=== PATIENT | male | born 1980 | race Caucasian/White ===

== ENCOUNTER 2016-06-26 17:59 | Emergency (ER) | payer BC ==
[~2016-06-26] VITALS: Ht 185.4 cm; Wt 82.4 kg
[2016-06-26 18:00] VITALS: Ht 185.4 cm; Wt 82.4 kg
[2016-06-26] MEDS ORDERED: LIDOCAINE 1% (MDV) 20 ML INJ SC ONE (19:30)
[2016-06-26] MEDS ORDERED: IBUPROFEN 600 MG TAB PO ONE (19:30)
[2016-06-26] MEDS ORDERED: DIPHTH/TET/ACEL PERTUSS (ADULT) 0.5 ML VIAL IM* ONE (19:30)
--- NOTE | 2016-06-26 19:59 | RADRPT ---
PROCEDURE: XR Hand. CLINICAL INDICATION: Laceration. Suspected retained glass foreign body TECHNIQUE: PA, oblique and lateral views of the right hand were obtained. COMPARISON: None available. FINDINGS: Mineralization is within normal limits. No fracture or osseous lesion is identified. Joint spaces are preserved. Soft tissues are unremarkable. No radiopaque foreign body is present. RPTAT:HJJR IMPRESSION: Unremarkable right hand without evidence of retained radiopaque foreign body. Physician Sekou Date Time Electronically viewed and signed by Physician Sekou on 06/26/2016 19:59 JR/
[2016-06-26] MEDS ORDERED: CEPH-443 PO (20:09)
[2016-06-26 20:22] VITALS: BP 127/68; PULSE 58; RESP 20; TEMP 98.2
--- NOTE | 2016-06-28 05:23 | ERD ---
ER Documentation Chief Complaint Date/Time DATE: 06/28/16 TIME: 05:22 Chief Complaint right hand lac HPI This patient is a 36-year-old male with no significant medical history presenting to the emergency department for laceration to his right hand of the palmar surface which occurred just prior to arrival. Patient is right-hand dominant. The patient states he was walking with a glass brock when he tripped and fell causing a jar to break and large glass in his hand. He was able to remove the glass. Patient's tetanus is not up-to-date. Patient reports mild pain associated with the cut. He does not believe there is a foreign body present. He denies all other injuries or symptoms at this time. ROS All systems reviewed and are negative except as per history of present illness. Medications Home Meds Active Scripts Cephalexin* (Keflex*) 500 Mg Capsule, 500 MG PO BID for 7 Days, #14 CAP Prov:MORA LENNON PA-C 06/26/16 PMhx/Soc Medical and Surgical Hx: pt denies Medical Hx, pt denies Surgical Hx Hx Alcohol Use: No Hx Substance Use: No Hx Tobacco Use: No Smoking Status: Never smoker FmHx Noncontributory for chief complaint Physical Exam Vitals Vital Signs Date Time Temp Pulse Resp B/P Pulse Ox O2 Delivery O2 Flow Rate FiO2 06/26/16 20:22 98.2 58 20 127/68 99 Room Air 06/26/16 18:00 98.2 71 20 117/71 99 Physical Exam Const: The patient is resting comfortably in no acute distress. Head: Atraumatic Eyes: Normal Conjunctiva ENT: Normal External Ears, Nose and Mouth. Neck: Full range of motion..~ No meningismus. Resp: Clear to auscultation bilaterally Cardio: Regular rate and rhythm, no murmurs Abd: Soft, non tender, non distended. Normal bowel sounds Skin: There is a 0.5 cm laceration to the palmar surface of the right hand with mild active bleeding there appears to be no foreign bodies present. Back: No midline or flank tenderness Ext: No cyanosis, or edema Neur: Awake and alert Psych: Normal Mood and Affect Results 24 hrs Current Medications Medications (Trade) Dose Ordered Sig/Rolando Route PRN Reason Start Time Stop Time Status Last Admin Dose Admin Diphtheria/ Tetanus/Acell Pertussis (Adacel) 0.5 ml ONCE ONCE IM* 06/26/16 19:30 06/26/16 19:31 DC 06/26/16 19:18 Lidocaine (Xylocaine 1% (Mdv) 20 ml) 20 ml ONCE ONCE SC 06/26/16 19:30 06/26/16 19:31 DC Ibuprofen (Motrin) 600 mg ONCE ONCE PO 06/26/16 19:30 06/26/16 19:31 DC 06/26/16 19:19 Procedures/MDM Laceration Repair by me: Anesthesia: 1% lidocaine locally Location: Palmar surface of right hand Tendon/Joint/Nerves: No injury Foreign body: None detected after copious irrigation and exploration Technique: Simple Interrupted Sutures Complexity: No subcutaneous sutures/mucosal repair/ edge excision Post Closure Length: 0.5 cm Patient's bleeding was easily controlled in the department and there is no indication of anemia. No evidence of compartment syndrome, neurologic injury, vascular injury, open joint, tendon laceration, or foreign body. Patient is appropriate for outpatient follow up. 48 hour wound check. Scar minimization instructions given. Departure Diagnosis: Primary Impression: Laceration Condition: Fair Patient Instructions: Laceration, Hand Referrals: COMMUNITY CLINICS YOU HAVE RECEIVED A MEDICAL SCREENING EXAM AND THE RESULTS INDICATE THAT YOU DO NOT HAVE A CONDITION THAT REQUIRES URGENT TREATMENT IN THE EMERGENCY DEPARTMENT. FURTHER EVALUATION AND TREATMENT OF YOUR CONDITION CAN WAIT UNTIL YOU ARE SEEN IN YOUR DOCTORS OFFICE WITHIN THE NEXT 1-2 DAYS. IT IS YOUR RESPONSIBILITY TO MAKE AN APPOINTMENT FOR FOLOW-UP CARE. IF YOU HAVE A PRIMARY DOCTOR --you should call your primary doctor and schedule an appointment IF YOU DO NOT HAVE A PRIMARY DOCTOR YOU CAN CALL OUR PHYSICIAN REFERRAL HOTLINE AT IF YOU CAN NOT AFFORD TO SEE A PHYSICIAN YOU CAN CHOSE FROM THE FOLLOWING [facility] CL[facility] [address] [facility]. [facility] [address] [facility] [facility] [address] [facility] [facility] [address] [facility]. [facility] [address] [facility]. [facility]. [address] Additional Instructions: Return to the emergency department in 48 hours for wound recheck. Return in 10 days for suture removal. Follow-up with your primary care physician within 1 week. Return to the emergency department immediately should you have any new or worsening symptoms, uncontrolled fevers, or other unexplained symptoms. Take all medications as directed. MORA LENNON PA-C Jun 28, 2016 05:23
== END 2016-06-26 20:22 | disposition home or self-care (01) ==
LOC: FTE 17:59
DX: S61.411A Laceration without foreign body of right hand, initial encounter (principal); W25.XXXA Contact with sharp glass, initial encounter; Y92.9 Unspecified place or not applicable; Z23 Encounter for immunization
CPT/HCPCS: 90471; 90715